=== PATIENT | female | born 1945 | race Caucasian/White ===

== ENCOUNTER 2017-01-09 14:54 | Inpatient (IN) | payer OTHER, MEDICARE ==
[~2017-01-09] VITALS: Ht 152.4 cm; Wt 98.0 kg
[2017-01-09 15:05] VITALS: BP 113/59; PULSE 120; RESP 22; TEMP 102.5; O2SAT 95
[2017-01-09] MEDS ORDERED: SODIUM CHLOR 0.9% 1000 ML INJ 1,000 ML IV ONE ×2 (15:15)
[2017-01-09] MEDS ORDERED: SODIUM CHLOR 0.9% 1000 ML INJ 400 ML IV ONE (15:15)
[2017-01-09] MEDS ORDERED: ACETAMINOPHEN 325 MG TAB PO ONE (15:15)
[2017-01-09 15:18] VITALS: BP 113/59; PULSE 120; RESP 25; TEMP 102.5; O2SAT 95
--- NOTE | 2017-01-09 15:28 | PD ---
HPI Chief Complaint: Cold / Flu Symptoms Time Seen by Provider: 15:15 Travel History International Travel<30 days: No Contact w/Intl Traveler<30days: No Traveled to known affect area: No History of Present Illness HPI Patient 71-year-old female visiting from [place] presents emergency department with cough congestion and fever for the past few days. 911 was called today because the patient has been falling because she has been generalized weakness. Is accompanied by family members. Patient states she's been feeling rundown cough and congestion went to urgent care center and she was diagnosed with vertigo recently. On arrival she is febrile and appears somewhat dehydrated but is a GCS of 15. She does endorse a wet cough which is nonproductive of sputum for the past few days and gradually worsening. States she's been in [place] since October. No other recent travel. PFSH Past Medical History Cardiovascular Problems: Yes (CABG) Respiratory: Yes (COPD, ASTHMA ) ?: Not Past Surgical History Hysterectomy: Yes Social History Tobacco Use: No Allergies-Medications (Allergen,Severity, Reaction): Coded Allergies: Codeine (Verified Allergy, Unknown, 01/09/17) Percocet (Verified Allergy, Unknown, 01/09/17) Reported Meds & Prescriptions Reported Meds & Active Scripts Active Reported Prednisone 5 Mg Tab 5 Mg PO HS Levothyroxine (Levothyroxine Sodium) 88 Mcg Tab 88 Mcg PO DAILY Pantoprazole (Pantoprazole Sodium) 40 Mg Tab 40 Mg PO DAILY Lasix (Furosemide) 40 Mg Tab 40 Mg PO BID Aspirin Adult Low Strength (Aspirin) 81 Mg Tabdr 81 Mg PO HS Buspirone (Buspirone HCl) 10 Mg Tab 10 Mg PO TID PRN Potassium Chloride ER (Potassium Chloride) 10 Meq Tab 10 Meq PO BID Pravastatin 40 Mg Tab 40 Mg PO HS Montelukast (Montelukast Sodium) 10 Mg Tab 10 Mg PO HS Amitriptyline (Amitriptyline HCl) 150 Mg Tab 150 Mg PO HS Meclizine (Meclizine HCl) 12.5 Mg Tab 12.5 Mg PO TID PRN Fish Oil 1000 mg ([place]-3 Fatty Acids) 1 Cap Cap 1,000 Mg PO BID Zofran (Ondansetron HCl) 4 Mg Tab 4 Mg PO Q8HR PRN Vistaril (Hydroxyzine Pamoate) 25 Mg Cap 25 Mg PO TID PRN Plavix (Clopidogrel Bisulfate) 75 Mg Tab 75 Mg PO DAILY Metoprolol Succinate ER 24 HR (Metoprolol Succinate) 100 Mg Tab 100 Mg PO DAILY Methocarbamol 750 Mg Tab 1,500 Mg PO BID Gabapentin 300 Mg Cap 900 Mg PO TID Review of Systems Except as stated in HPI: all other systems reviewed are Neg Physical Exam Narrative GENERAL: Well-developed well-nourished hot and flushed, ill-appearing but nontoxic. SKIN: Hot and flushed. HEAD: Atraumatic. Normocephalic. EYES: Pupils equal and round. No scleral icterus. No injection or drainage. ENT: No nasal bleeding or discharge. Mucous membranes pink and moist. NECK: Trachea midline. No JVD. CARDIOVASCULAR: Regular rate and rhythm. No murmur appreciated. RESPIRATORY: No accessory muscle use. Clear to auscultation. Breath sounds equal bilaterally. GASTROINTESTINAL: Abdomen soft, non-tender, nondistended. Hepatic and splenic margins not palpable. MUSCULOSKELETAL: No obvious deformities. No clubbing. No cyanosis. No edema. NEUROLOGICAL: Awake and alert. No obvious cranial nerve deficits. Motor grossly within normal limits. Normal speech. PSYCHIATRIC: Appropriate mood and affect; insight and judgment normal. Data Data Last Documented VS Vital Signs Date Time Temp Pulse Resp B/P Pulse Ox O2 Delivery O2 Flow Rate FiO2 01/09/17 16:51 100.3 01/09/17 16:49 96 Nasal Cannula 3 01/09/17 15:18 120 25 113/59 Orders Complete Blood Count With Diff (01/09/17 15:15) Comprehensive Metabolic Panel (01/09/17 15:15) Prothrombin Time / Inr (Pt) (01/09/17 15:15) Act Partial Throm Time (Ptt) (01/09/17 15:15) Lactic Acid Sepsis Protocol (01/09/17 15:15) Magnesium (Mg) (01/09/17 15:15) Phosphorus (Po4) (01/09/17 15:15) Lipase (01/09/17 15:15) Ckmb (Isoenzyme) Profile (01/09/17 15:15) Troponin I (01/09/17 15:15) Urinalysis - C+S If Indicated (01/09/17 15:15) Blood Culture (01/09/17 15:15) Chest, Single Ap (01/09/17 15:15) Blood Glucose (01/09/17 15:15) Ecg Monitoring (01/09/17 15:15) Iv Access Insert/Monitor (01/09/17 15:15) Oximetry (01/09/17 15:15) Oxygen Administration (01/09/17 15:15) Acetaminophen (Tylenol) (01/09/17 15:15) Sodium Chlor 0.9% 1000 Ml Inj (Ns 1000 M (01/09/17 15:15) Sodium Chlor 0.9% 1000 Ml Inj (Ns 1000 M (01/09/17 15:15) Sodium Chlor 0.9% 1000 Ml Inj (Ns 1000 M (01/09/17 15:15) Ceftriaxone Inj (Rocephin Inj) (01/09/17 18:15) Azithromycin Inj (Zithromax Inj) (01/09/17 18:15) Diet Heart Healthy (01/09/17 Dinner) Vital Signs (Adult) AUGUSTO.Q4H (01/09/17 18:25) Resp Oxygen Stevenson C Titrat 1-4 L (01/09/17 ) Acetaminophen (Tylenol) (01/09/17 18:30) Admit Order (Ed Use Only) (01/09/17 ) Albuterol-Ipratropium Neb (Duoneb Neb) (01/09/17 18:30) Labs Laboratory Tests Test 01/09/17 01/09/17 01/09/17 15:15 15:45 18:20 White Blood Count 13.9 TH/MM3 Red Blood Count 4.95 MIL/MM3 Hemoglobin 14.0 GM/DL Hematocrit 43.1 % Mean Corpuscular Volume 87.0 FL Mean Corpuscular Hemoglobin 28.2 PG Mean Corpuscular Hemoglobin 32.4 % Concent Red Cell Distribution Width 14.0 % Platelet Count 216 TH/MM3 Mean Platelet Volume 9.2 FL Neutrophils (%) (Auto) 86.0 % Lymphocytes (%) (Auto) 9.2 % Monocytes (%) (Auto) 4.2 % Eosinophils (%) (Auto) 0.3 % Basophils (%) (Auto) 0.3 % Neutrophils # (Auto) 11.9 TH/MM3 Lymphocytes # (Auto) 1.3 TH/MM3 Monocytes # (Auto) 0.6 TH/MM3 Eosinophils # (Auto) 0.0 TH/MM3 Basophils # (Auto) 0.0 TH/MM3 CBC Comment DIFF FINAL Differential Comment Prothrombin Time 10.8 SEC Prothromb Time International 1.0 RATIO Ratio Activated Partial 26.1 SEC Thromboplast Time Sodium Level 139 MEQ/L Potassium Level 3.6 MEQ/L Chloride Level 103 MEQ/L Carbon Dioxide Level 28.9 MEQ/L Anion Gap 7 MEQ/L Blood Urea Nitrogen 4 MG/DL Creatinine 0.64 MG/DL Estimat Glomerular Filtration 92 ML/MIN Rate Random Glucose 118 MG/DL Lactic Acid Level 2.2 mmol/L 1.4 mmol/L Calcium Level 8.6 MG/DL Phosphorus Level 2.6 MG/DL Magnesium Level 1.8 MG/DL Total Bilirubin 0.8 MG/DL Aspartate Amino Transf 33 U/L (AST/SGOT) Alanine Aminotransferase 27 U/L (ALT/SGPT) Alkaline Phosphatase 80 U/L Total Creatine Kinase 59 U/L Troponin I LESS THAN 0.02 NG/ML Total Protein 6.9 GM/DL Albumin 3.7 GM/DL Lipase 100 U/L Urine Color YELLOW Urine Turbidity CLEAR Urine pH 8.0 Urine Specific [place] 1.012 Urine Protein NEG mg/dL Urine Glucose (UA) NEG mg/dL Urine Ketones NEG mg/dL Urine Occult Blood NEG Urine Nitrite NEG Urine Bilirubin NEG Urine Urobilinogen LESS THAN 2.0 MG/DL Urine Leukocyte Esterase SMALL Urine WBC 1 /hpf Urine Squamous Epithelial 1 /hpf Cells Microscopic Urinalysis Comment CULT NOT INDICATED MDM Medical Decision Making Medical Screen Exam Complete: Yes Emergency Medical Condition: Yes Interpretation(s) Chest x-ray shows left lower lobe infiltrate. Differential Diagnosis Pneumonia, sepsis, dehydration, electro-light abnormality. Narrative Course Patient roomed in the emergency department, appears hemodynamically stable however somewhat ill but nontoxic appearance. Antibiotics were started Rocephin and azithromycin, normal saline given by bolus. Initial lactic acid is 2.2 becoming 1.4 after fluid resuscitation. Chest x-ray read by radiology is negative however I believe I see some infiltrative process in the left lower lobe probably retrocardiac. Given that the patient is been falling I have opted to forego a lateral chest x-ray at this time. Discussed with the patient that given her pneumonia and sepsis I would refer him patient admits and she is agreeable. Patient was discussed with Dr. Morrow who was also agreeable and the patient will be admitted to his service. Diagnosis Primary Impression: PNA (pneumonia) Additional Impression: Sepsis Admitting Information Admitting Physician Requests: Admit Condition: Stable Arjun Gaviria MD Jan 09, 2017 15:28
[2017-01-09 16:06] LABS: AUTOMATED NEUTROPHIL # 11.9 TH/MM3 (1.8-7.7); BASOPHIL % 0.3 % (0.0-2.0); EOSINOPHIL % 0.3 % (0.0-4.0); HEMATOCRIT 43.1 % (35.0-46.0); HEMO FLAGS DIFF FINAL; LYMPH % 9.2 % (9.0-44.0); LYMPHOCYTE # 1.3 TH/MM3 (1.0-4.8); MEAN CORPUSCULAR HEMOGLOBIN 28.2 PG (27.0-34.0); MEAN CORPUSCULAR HGB CONC 32.4 % (32.0-36.0); MONO % 4.2 % (0.0-8.0); PLATELET COUNT 216 TH/MM3 (150-450); RED BLOOD COUNT 4.95 MIL/MM3 (4.00-5.30); WHITE BLOOD COUNT 13.9 TH/MM3 (4.0-11.0)
[2017-01-09 16:10] LABS: APTT (PATIENT) 26.1 SEC (24.3-30.1); PROTHROMBIN TIME - PATIENT 10.8 SEC (9.8-11.6)
--- NOTE | 2017-01-09 16:11 | RADRPT ---
EXAM DATE/TIME: 01/09/2017 15:33 [facility] COMPARISON: No previous studies available for comparison. INDICATIONS : Fever. MEDICAL HISTORY : None. SURGICAL HISTORY : CABG. ENCOUNTER: Initial ACUITY: 1 day PAIN SCORE: 0/10 LOCATION: Bilateral chest FINDINGS: Sternal wires from previous mediastinum is noted. The lungs are clear. The heart is minimally enlarged. The pulmonary vascularity is normal. There is n o evidence for infiltrate or failure. The portion of the bony skeleton visualized is unremarkable. CONCLUSION: Compensated cardiomegaly otherwise negative Willis Breen MD FACR Board Certified Radiologist. This report was verified electronically.
[2017-01-09 16:19] LABS: ALT (GPT) 27 U/L (10-53); ANION GAP 7 MEQ/L (5-15); AST (GOT) 33 U/L (15-37); BICARBONATE 28.9 MEQ/L (21.0-32.0); BLOOD UREA NITROGEN 4 MG/DL (7-18); CHLORIDE 103 MEQ/L (98-107); GLOMERULAR FILTRATION RATE 92 ML/MIN (>89); MAGNESIUM 1.8 MG/DL (1.5-2.5); POTASSIUM 3.6 MEQ/L (3.5-5.1); SODIUM (NA) 139 MEQ/L (136-145)
[2017-01-09 16:22] LABS: ALKALINE PHOSPHATASE 80 U/L (45-117); TOTAL BILIRUBIN ADULT 0.8 MG/DL (0.2-1.0)
[2017-01-09 16:29] LABS: CREATINE KINASE 59 U/L (26-192)
[2017-01-09] MEDS ORDERED: PANT40TA3 PO (16:34)
[2017-01-09] MEDS ORDERED: LEVO88TA2 PO (16:34)
[2017-01-09] MEDS ORDERED: ASPI1TAB91 PO (16:34)
[2017-01-09] MEDS ORDERED: GABA300C5 PO (16:34)
[2017-01-09] MEDS ORDERED: VIST25CA PO (16:34)
[2017-01-09] MEDS ORDERED: PLAV75TA29 PO (16:34)
[2017-01-09] MEDS ORDERED: POTA10TA2 PO (16:34)
[2017-01-09] MEDS ORDERED: MONT10TA4 PO (16:34)
[2017-01-09] MEDS ORDERED: AMIT150T PO (16:34)
[2017-01-09] MEDS ORDERED: PRED5TAB PO (16:34)
[2017-01-09] MEDS ORDERED: PRAV40TA2 PO (16:34)
[2017-01-09] MEDS ORDERED: FURO1TAB60 PO (16:34)
[2017-01-09] MEDS ORDERED: METO100T9 PO (16:34)
[2017-01-09] MEDS ORDERED: METH750T PO (16:34)
[2017-01-09] MEDS ORDERED: MECL12.574 PO (16:34)
[2017-01-09] MEDS ORDERED: BUSP10TA PO (16:34)
[2017-01-09] MEDS ORDERED: ZOFR4TAB PO (16:34)
[2017-01-09] MEDS ORDERED: FISH100020 PO (16:34)
[2017-01-09 16:40] LABS: BLOOD, URINE NEG (NEG); COMMENT (UR) CULT NOT INDICATED; CULTURE IF INDICATED CULT NOT INDICATED; GLUCOSE,URINE NEG (NEG); KETONE, URINE NEG (NEG); NITRITE,URINE NEG (NEG); SQUAMOUS EPITHELIAL CELL URINE 1 /hpf (0-5); URINE COLOR YELLOW (YELLW/STRAW)
[2017-01-09 16:51] VITALS: TEMP 100.3
[2017-01-09 17:44] LABS: LACTIC ACID GHOST NOT REPORTABLE
[2017-01-09] MEDS ORDERED: AZITHROMYCIN INJ 500 MG in SODIUM CHLOR 0.9% 250 ML INJ 250 ML IV ONE (18:15)
[2017-01-09] MEDS ORDERED: cefTRIAXone INJ 1,000 MG in SODIUM CHLORIDE 0.9% INJ 100 ML IV ONE (18:15)
[2017-01-09] MEDS ORDERED: RESP: ALBUTEROL 2.5 MG/IPRATROPIUM 0.5 MG NEB (PRN) NEB (18:30)
[2017-01-09] MEDS ORDERED: IBUPROFEN 600 MG TAB PO ONE (19:00)
[2017-01-09 19:06] VITALS: BP 127/63; PULSE 106; RESP 18; O2SAT 99
[2017-01-09 19:12] VITALS: O2SAT 97
[2017-01-10] VITALS (8 sets, daily range): BP systolic 117–146; BP diastolic 61–79; PULSE 77–97; RESP 18–22; TEMP 97.3–99.7; O2SAT 93–98
--- NOTE | 2017-01-10 01:31 | HHI.HP ---
HPI Service [facility] Primary Care Physician Unknown Admission Diagnosis Sepsis, PNA Diagnoses: Travel History International Travel<30 Days: No Contact w/Intl Traveler <30 Da: No Traveled to Known Affected Are: No History of Present Illness fallen down 6x in 2 months here from [place] felt dzzy, room spinning force pulling me fell forwards falls > 3 months or could be even last year ct brain in [place]- [facility] no pain or ringing in ears no sycnope no palpitations no focal weakness no orthostatic dizziness in general no fever coughing when i drink something and go to wrong pipe no antibiotics recently urgent care gave antivert and prednisone 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 radiation treatment because of change in tumor no odynophasi but cough after drinking had huge knot behind her ear - evaluated at urgent now has right upper ear area hard knot sob with climbing stairs or espinoza no nasuea/ no vomting/ no sweating/ no chest pains nno black no blood no abdominal pain no calf pain no calf asymmetry Review of Systems Except as stated in HPI: all other systems reviewed are Neg Past Family Social History Past Medical History cabg- 1995 cad - s/p stent once since then hyperlipidemia htn copd asthma 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, 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 a year later due to regrowth Past Surgical History cabg- 1995 angiogram and stenting left elbow sx gallbladder hysterectomy tumor on jaw- benign, removal hernia sx x 3 gastric bypass-1980 armando bilateral knee replacement 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 no drugs Physical Exam Vital Signs Vital Signs Date Time Temp Pulse Resp B/P Pulse Ox O2 Delivery O2 Flow Rate FiO2 01/09/17 19:12 97 Nasal Cannula 2.00 01/09/17 19:06 106 18 127/63 99 Nasal Cannula 2 01/09/17 16:51 100.3 01/09/17 16:49 96 Nasal Cannula 3 01/09/17 15:18 102.5 120 25 113/59 95 Nasal Cannula 3 01/09/17 15:12 25 95 Nasal Cannula 3 01/09/17 15:05 102.5 120 22 113/59 95 Physical Exam GENERAL: This is a well-nourished, well-developed patient, in no apparent distress. SKIN: No rashes, ecchymoses or lesions. Cool and dry. HEAD: Atraumatic. Normocephalic. No temporal or scalp tenderness. small hard mass at right scalp just above pinna EYES: No scleral icterus. No injection or drainage. ENT: Nose without bleeding, purulent drainage or septal hematoma. Airway patent. NECK: Trachea midline. No JVD CARDIOVASCULAR: Regular rate and rhythm without murmurs, gallops, or rubs. RESPIRATORY: Clear to auscultation. Breath sounds equal bilaterally. No wheezes , rales, or rhonchi. GASTROINTESTINAL: Abdomen soft, non-tender, nondistended.. No guarding. MUSCULOSKELETAL: Extremities without clubbing, cyanosis, or edema. No calf tenderness. NEUROLOGICAL: Awake and alert. Motor and sensory grossly within normal limits. Normal speech. Laboratory Laboratory Tests Test 01/09/17 01/09/17 01/09/17 15:15 15:45 18:20 White Blood Count 13.9 Red Blood Count 4.95 Hemoglobin 14.0 Hematocrit 43.1 Mean Corpuscular Volume 87.0 Mean Corpuscular Hemoglobin 28.2 Mean Corpuscular Hemoglobin 32.4 Concent Red Cell Distribution Width 14.0 Platelet Count 216 Mean Platelet Volume 9.2 Neutrophils (%) (Auto) 86.0 Lymphocytes (%) (Auto) 9.2 Monocytes (%) (Auto) 4.2 Eosinophils (%) (Auto) 0.3 Basophils (%) (Auto) 0.3 Neutrophils # (Auto) 11.9 Lymphocytes # (Auto) 1.3 Monocytes # (Auto) 0.6 Eosinophils # (Auto) 0.0 Basophils # (Auto) 0.0 CBC Comment DIFF FINAL Differential Comment Prothrombin Time 10.8 Prothromb Time International 1.0 Ratio Activated Partial 26.1 Thromboplast Time Sodium Level 139 Potassium Level 3.6 Chloride Level 103 Carbon Dioxide Level 28.9 Anion Gap 7 Blood Urea Nitrogen 4 Creatinine 0.64 Estimat Glomerular Filtration 92 Rate Random Glucose 118 Lactic Acid Level 2.2 1.4 Calcium Level 8.6 Phosphorus Level 2.6 Magnesium Level 1.8 Total Bilirubin 0.8 Aspartate Amino Transf 33 (AST/SGOT) Alanine Aminotransferase 27 (ALT/SGPT) Alkaline Phosphatase 80 Total Creatine Kinase 59 Troponin I LESS THAN 0.02 Total Protein 6.9 Albumin 3.7 Lipase 100 Urine Color YELLOW Urine Turbidity CLEAR Urine pH 8.0 Urine Specific [place] 1.012 Urine Protein NEG Urine Glucose (UA) NEG Urine Ketones NEG Urine Occult Blood NEG Urine Nitrite NEG Urine Bilirubin NEG Urine Urobilinogen LESS THAN 2.0 Urine Leukocyte Esterase SMALL Urine WBC 1 Urine Squamous Epithelial 1 Cells Microscopic Urinalysis Comment CULT NOT INDICATED Date/Time Procedure Status Source Growth 01/09/17 22:15 Influenza Types A,B Antigen (JHONY) - Final Complete Nasal Washing NEGATIVE FOR FLU A AND B ANTIGEN.... 01/09/17 15:20 Aerobic Blood Culture Received Blood Peripheral Pending 01/09/17 15:20 Anaerobic Blood Culture Received Blood Peripheral Pending Result Diagram: 01/09/17 1515 01/09/17 1515 Imaging Last [address] 01/10/17 0000 Signed Impressions: Service Date/Time: December 03:26 - CONCLUSION: Unremarkable study. K. Tanvir Bauer MD Chest X-Ray 01/09/17 1515 Signed Impressions: Service Date/Time: Monday, January 09, 2017 15:33 - CONCLUSION: Compensated cardiomegaly otherwise negative Willis Breen MD FACR Assessment and Plan Assessment and Plan Impression: dizziness/ frequent falls- likely due to vertigo. We'll need to rule out neurocardiogenic etiologies though. Possible sepsiswith fever, mild leukocytosis with left shift. Possible source being early pneumonia. Frequent fallswith shuffling gait per family report. Would need their outpatient workup if acute issues were ruled out since patient has strong family history of Parkinson's disease. 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 Echocardiogram. Carotid sono. Head CT. If head CT is benign, and patient symptoms are not improved, would consider MRI since patient has history of pituitary tumor which was resected and recurred. Influenza screen was done. Negative. We'll follow blood culture results. UA is negative. Patient received Rocephin and azithromycin in ER. Would use levofloxacin 750 mg IV every 24 hours. Resume home medications. Physical therapy consult. DVT prophylaxiswith Lovenox. GI prophylaxis on pantoprazole. Discussed Condition With patient, nursing staff Physician Certification Order for Inpatient Services The services are ordered in accordance with Medicare regulations or non- Medicare payer requirements, as applicable. In the case of services not specified as inpatient-only, they are appropriately provided as inpatient services in accordance with the 2-midnight benchmark. days is the estimated time the patient will need to remain in the hospital, assuming treatment plan goals are met and no additional complications. Sherlyn Ferreira MD Jan 10, 2017 01:31
[2017-01-10] MEDS ORDERED: MECLIZINE HCL 25 MG TAB PO PRN (02:30)
[2017-01-10] MEDS: hydrOXYzine PAMOATE 25 MG CAP PO PRN ×2 (02:41→16:52)
[2017-01-10] MEDS: ACETAMINOPHEN 325 MG TAB PO PRN ×5 (02:43→22:53)
[2017-01-10] MEDS ORDERED: ONDANSETRON ODT 4 MG TAB PO PRN (02:45)
[2017-01-10] MEDS ORDERED: PILL SPLITTER OTHER PRN (02:45)
--- NOTE | 2017-01-10 03:58 | RADRPT ---
EXAM DATE/TIME: 01/10/2017 03:26 [facility] COMPARISON: No previous studies available for comparison. INDICATIONS : Frequent falls. RADIATION DOSE: 39.17 CTDIvol (mGy) MEDICAL HISTORY : Cardiovascular disease. Hypertension. Chronic obstructive pulmonary disease.Pit uitary tumor SURGICAL HISTORY : Craniotomy. Cholecystectomy.Hysterectomy.Gastric bypass ENCOUNTER: Initial ACUITY: 1 day PAIN SCALE: 0/10 LOCATION: cranial TECHNIQUE: Multiple contiguous axial images were obtained of the head. Using automated exposure control and adjustment of the mA and/or kV according to patient size, radiation dose was kept as low as reasonably achievable to obtain optimal diagnostic quality images. FINDINGS: There is no evidence for intracranial hemorrhage, mass effect, mass lesions, edema, or extra-axial fl uid collections. The visualized bony structures appear intact. The ventricles are normal size for t he patient's age. There are no signs of acute infarction for technique. CONCLUSION: Unremarkable study. Deya Bauer MD on January 10, 2017 at 3:55 Board Certified Radiologist. This report was verified electronically.
[2017-01-10] MEDS: PANTOPRAZOLE SOD 40 MG DELAYED RELEASE TAB PO SCH (06:26)
[2017-01-10] MEDS: LEVOTHYROXINE SODIUM 88 MCG TAB PO SCH (06:26)
[2017-01-10] MEDS: LEVOFLOXACIN 750 MG PREMIX INJ 150 ML IV SCH (08:26)
[2017-01-10] MEDS: FUROSEMIDE 40 MG TAB PO SCH ×2 (08:29→16:52)
[2017-01-10] MEDS: POTASSIUM CHLORIDE 10 MEQ CONTROLLED RELEASE TAB PO SCH ×2 (08:29→20:03)
[2017-01-10] MEDS: CLOPIDOGREL 75 MG TAB PO SCH (08:29)
[2017-01-10] MEDS: ENOXAPARIN SODIUM 40 MG/0.4 ML SYRINGE SQ SCH (08:29)
[2017-01-10] MEDS: METOPROLOL SUCCINATE 50 MG EXTENDED RELEASE TAB PO SCH (08:29)
[2017-01-10] MEDS: GABAPENTIN 300 MG CAP PO SCH ×3 (08:29→16:52)
--- NOTE | 2017-01-10 09:07 | HHI.PR ---
Subjective Remarks resting comfortably. denies sob. afebrile this morning- Tmax 102.5. awaiting PT evaluation. d/w the RN. Objective Vitals Vital Signs Date Time Temp Pulse Resp B/P Pulse Ox O2 Delivery O2 Flow Rate FiO2 01/10/17 08:21 98.0 97 22 146/79 96 01/10/17 04:00 98.8 90 20 128/61 98 01/10/17 00:00 99.7 96 20 146/72 97 118/71 01/09/17 19:12 97 Nasal Cannula 2.00 01/09/17 19:06 106 18 127/63 99 Nasal Cannula 2 01/09/17 16:51 100.3 01/09/17 16:49 96 Nasal Cannula 3 01/09/17 15:18 102.5 120 25 113/59 95 Nasal Cannula 3 01/09/17 15:12 25 95 Nasal Cannula 3 01/09/17 15:05 102.5 120 22 113/59 95 Result Diagram: 01/09/17 1515 01/09/17 1515 Imaging Last Impressions Head CT 01/10/17 0000 Signed Impressions: Service Date/Time: December 03:26 - CONCLUSION: Unremarkable study. K. Tanvir Bauer MD Chest X-Ray 01/09/17 1515 Signed Impressions: Service Date/Time: Monday, January 09, 2017 15:33 - CONCLUSION: Compensated cardiomegaly otherwise negative Willis Breen MD FACR Objective Remarks GENERAL: This is a well-nourished, well-developed patient, in no apparent distress. CARDIOVASCULAR: Regular rate and regular rhythm without murmurs, gallops, or rubs. RESPIRATORY: Clear to auscultation. Breath sounds equal bilaterally. No wheezes , rales, or rhonchi. GASTROINTESTINAL: Abdomen soft, non-tender, nondistended. Normal, active bowel sounds MUSCULOSKELETAL: Extremities without clubbing, cyanosis, or edema. NEURO: Alert & Oriented x4 to person, place, time, situation. Moves all ext x4 Procedures none Medications and IVs Current Medications Acetaminophen 650 mg 650 mg ONCE ONCE PO Last administered on 01/09/17t 16:15 ; Start 01/09/17 at 15:15; Stop 01/09/17 at 15:20; Status DC Sodium Chloride 1,000 ml @ 1,000 mls/hr Q1H ONCE IV Last administered on 16:16; Start 01/09/17 at 15:15; Stop 01/09/17 at 16:14; Status DC Sodium Chloride 1,000 ml @ 1,000 mls/hr Q1H ONCE IV Last administered on 16:17; Start 01/09/17 at 15:15; Stop 01/09/17 at 16:14; Status DC Sodium Chloride 400 ml @ 1,000 mls/hr Q24M ONCE IV Last administered on 16:41; Start 01/09/17 at 15:15; Stop 01/09/17 at 15:38; Status DC Ceftriaxone Sodium 1000 mg/ Sodium Chloride 100 ml @ 200 mls/hr ONCE ONCE IV Last administered on 01/09/17 18:15; Start 01/09/17 at 18:15; Stop 01/09/17 at 18:44; Status DC Azithromycin/ Sodium Chloride (Zithromax Inj/ NS 250 ml Inj) 250 ml @ 250 mls/ hr ONCE ONCE IV Last administered on 01/09/17 18:39; Start 01/09/17 at 18:15 ; Stop 01/09/17 at 19:14; Status DC Acetaminophen (Tylenol) 650 mg Q4H PRN PO FEVER; Start 01/09/17 at 18:30 Albuterol/ Ipratropium (Duoneb Neb) 1 ampule Q4HR NEB PRN NEB SHORTNESS OF BREATH Last administered on 01/09/17 19:12; Start 01/09/17 at 18:30 Ibuprofen 600 mg 600 mg ONCE ONCE PO Last administered on 01/09/17 19:01; Start 01/09/17 at 19:00; Stop 01/09/17 at 19:01; Status DC Levofloxacin/ Dextrose (Levaquin 750 Mg Premix Inj) 150 ml @ 100 mls/hr Q24H IV Last administered on 01/10/17 08:26; Start 01/10/17 at 09:00 Amitriptyline HCl (Elavil) 150 mg HS PO ; Start 01/10/17 at 21:00 Aspirin (Ecotrin Ec) 81 mg HS PO ; Start 01/10/17 at 21:00 Clopidogrel Bisulfate (Plavix) 75 mg DAILY PO Last administered on 01/10/17 08 :29; Start 01/10/17 at 09:00 Furosemide (Lasix) 40 mg BID@09,18 PO Last administered on 01/10/17 08:29; Start 01/10/17 at 09:00 Gabapentin (Neurontin) 900 mg TID PO Last administered on 01/10/17 08:29; Start 01/10/17 at 09:00 Hydroxyzine Pamoate (Vistaril) 25 mg TID PRN PO ANXIETY Last administered on 02:41; Start 01/10/17 at 02:30 Levothyroxine Sodium (Synthroid) 88 mcg DAILY@06 PO Last administered on 06:26; Start 01/10/17 at 06:00 Meclizine HCl (Antivert) 12.5 mg TID PRN PO VERTIGO; Start 01/10/17 at 02:30 Montelukast Sodium (Singulair) 10 mg HS PO ; Start 01/10/17 at 21:00 Pantoprazole Sodium (Protonix) 40 mg DAILY@06 PO Last administered on 06:26; Start 01/10/17 at 06:00 Potassium Chloride (KCl) 10 meq BID PO Last administered on 01/10/17 08:29; Start 01/10/17 at 09:00 Pravastatin Sodium (Pravachol) 40 mg HS PO ; Start 01/10/17 at 21:00 Prednisone (Deltasone) 5 mg HS PO ; Start 01/10/17 at 21:00 Metoprolol Succinate (Toprol Xl) 100 mg DAILY PO Last administered on 08:29; Start 01/10/17 at 09:00 Ondansetron HCl (Zofran Odt) 4 mg Q8H PRN PO NAUSEA/VOMITING; Start 01/10/17 at 02:45 Miscellaneous (Pill Splitter) 1 ea UNSCH PRN OTHER SEE LABEL COMMENTS; Start at 02:45 Acetaminophen (Tylenol) 650 mg Q4H PRN PO pain 1-10 Last administered on 08:28; Start 01/10/17 at 02:45 Enoxaparin Sodium (Lovenox Inj) 40 mg Q24H SQ Last administered on 01/10/17t 08 :29; Start 01/10/17 at 09:00 A/P Assessment and Plan A/P dizziness/ frequent falls- likely due to vertigo. CT head with no acute abnormality- echo and carotid doppler pending. awaiting PT evaluation- will consider MRI brain and/or neurology evaluation if no improvement. Possible sepsiswith fever, mild leukocytosis with left shift. Possible source being early pneumonia. continue with antibiotics and follow the cultures. CAD- s/p CABG/ hypertension/ dyslipidemia; continue aspirin, plavix, BB and statin. 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 Ignacio Morrow MD Jan 10, 2017 09:07
--- NOTE | 2017-01-10 13:06 | RADRPT ---
EXAM DATE/TIME: 01/10/2017 09:42 [facility] COMPARISON: No previous studies available for comparison. INDICATIONS : Syncope. MEDICAL HISTORY : Hypertension. Chronic obstructive pulmonary disease. Thyroid disease. Dizziness. Asthma. Dyspnea. A rthritis. Spinal stenosis. Claustrophobia. Spurs on spinal column. SURGICAL HISTORY : CABG. Cholecystectomy. Hysterectomy. Tumor removed off jaw. Tumor removed off pituitary gland. 4 bypa ss surgerys. Gastric stapling. Two knee replacements. Two elbow replacements. ENCOUNTER: Initial ACUITY: 1 day PAIN SCORE: 0/10 LOCATION: Bilateral neck. PEAK SYSTOLIC VELOCITIES (cm/sec): ICA/CCA RATIO: Right: 1.2 Left: 1.2 ICA: Right: 92 Left: 108 CCA: Right: 83 Left: 141 ECA: Right: 89 Left: 84 VERTEBRAL: Right: 65 antegrade Left: 63 antegrade Elevated flow velocities and ICA/CCA ratios have been found to correlate with increased degrees of vessel stenosis, calculated as percentage of diameter relative to a normal segment of distal ICA/CCA FINDINGS: RIGHT CAROTID: There is mild atherosclerotic plaquing.. The waveforms are within normal limits. LEFT CAROTID: There is moderate atherosclerotic plaquing. The waveforms are within normal limits. VERTEBRAL ARTERIES: Antegrade flow is seen in both vertebral arteries. MISCELLANEOUS: None. CONCLUSION: 1. Atherosclerotic plaquing at the bifurcations bilaterally. No hemodynamically significant carotid a rtery stenosis identified. Osvaldo Breen MD on January 10, 2017 at 13:04 Board Certified Radiologist. This report was verified electronically.
--- NOTE | 2017-01-10 17:10 | ECHRPT ---
Indication: evaluate LV CONCLUSIONS Normal left ventricular size. Wall thickness is measured at the upper limits of normal. Mild aortic valve sclerosis is present. There is moderate to severe tricuspid valve regurgitation. The estimated pulmonary arterial pressure is 41 mmHg. The pulmonary valve is not well visualized. The transthoracic study is normal by two-dimensional, color flow imaging and Doppler interrogation. BP: / HR: 90 Rhythm: Sinus MEASUREMENTS (Male / Female) Normal Values Technical Quality:Good 2D ECHO LV Diastolic Diameter PLAX 4.5 cm 4.2 - 5.9 / 3.9 - 5.3 cm LV Systolic Diameter PLAX 3.6 cm IVS Diastolic Thickness 1.2 cm 0.6 - 1.0 / 0.6 - 0.9 cm LVPW Diastolic Thickness 1.2 cm 0.6 - 1.0 / 0.6 - 0.9 cm LV Relative Wall Thickness 0.5 LVOT Diameter 1.8 cm M-MODE Aortic Root Diameter MM 2.5 cm LA Systolic Diameter MM 4.1 cm LA Ao Ratio MM 1.6 AV Cusp Separation MM 1.8 cm DOPPLER AV Peak Velocity 121.0 cm/s AV Peak Gradient 5.9 mmHg LVOT Peak Velocity 117.0 cm/s LVOT Peak Gradient 5.5 mmHg AV Area Cont Eq pk 2.5 cm TR Peak Velocity 278.0 cm/s TR Peak Gradient 30.9 mmHg PV Peak Velocity 133.0 cm/s PV Peak Gradient 7.1 mmHg FINDINGS LEFT VENTRICLE The left ventricular systolic function is normal with an estimated ejection fraction in the range of 60-65%. Normal left ventricular size. Wall thickness is measured at the upper limits of normal. RIGHT VENTRICLE Normal right ventricular size and systolic function. LEFT ATRIUM The left atrial size is normal. RIGHT ATRIUM The right atrial size is normal. ATRIAL SEPTUM Normal atrial septal thickness without atrial level shunting by limited color doppler interrogation. AORTA The aortic root and proximal ascending aorta are normal in size on limited imaging. MITRAL VALVE Structurally normal mitral valve. No mitral valve stenosis or regurgitation. AORTIC VALVE Trileaflet aortic valve. No aortic valve stenosis or regurgitation. Mild aortic valve sclerosis is present. TRICUSPID VALVE Structurally normal tricuspid valve. There is moderate to severe tricuspid valve regurgitation. The estimated pulmonary arterial pressure is 41 mmHg. PULMONARY VALVE The pulmonary valve is not well visualized. VESSELS The inferior vena cava is normal in size. PERICARDIUM No pericardial effusion. Palomo El MD (Electronically Signed) Final Date:10 January 2017 17:09
[2017-01-10] MEDS: predniSONE 5 MG TAB PO SCH (20:03)
[2017-01-10] MEDS: ASPIRIN EC 81 MG TABEC PO SCH (20:03)
[2017-01-10] MEDS: MONTELUKAST SODIUM 10 MG TAB PO SCH (20:03)
[2017-01-10] MEDS: PRAVASTATIN SOD 40 MG TAB PO SCH (20:03)
[2017-01-10] MEDS: AMITRIPTYLINE HCL 75 MG TAB PO SCH (20:07)
[2017-01-11] VITALS (7 sets, daily range): BP systolic 121–150; BP diastolic 20–81; PULSE 69–94; RESP 20; TEMP 97.4–98.8; O2SAT 90–97
[2017-01-11] MEDS: hydrOXYzine PAMOATE 25 MG CAP PO PRN ×3 (01:49→22:11)
[2017-01-11] MEDS: LEVOTHYROXINE SODIUM 88 MCG TAB PO SCH (06:25)
[2017-01-11] MEDS: PANTOPRAZOLE SOD 40 MG DELAYED RELEASE TAB PO SCH (06:25)
--- NOTE | 2017-01-11 08:53 | HHI.PR ---
Subjective Remarks in no acute distress. afebrile. still with some vertigo and unsteady gait; she says that she was trying to go to bathroom last night but was not steady on her feet. Objective Vitals Vital Signs Date Time Temp Pulse Resp B/P Pulse Ox O2 Delivery O2 Flow Rate FiO2 01/11/17 08:13 97.4 70 20 141/74 93 01/11/17 04:00 98.0 80 20 121/69 90 01/11/17 01:00 97.5 94 20 124/73 97 01/10/17 20:00 98.5 18 117/69 93 01/10/17 18:00 94 21 01/10/17 16:18 97.5 79 20 120/70 94 01/10/17 12:23 97.3 77 20 122/78 98 01/10/17 10:40 98 21 I/O 01/10/17 01/10/17 01/10/17 01/11/17 01/11/17 01/11/17 07:00 15:00 23:00 07:00 15:00 23:00 Intake Total 270 ml Balance 270 ml Intake Oral 120 ml IV Total 150 ml # Voids 2 3 2 # Bowel Movements 1 1 Result Diagram: 01/09/17 1515 01/09/17 1515 Imaging Last Impressions Head CT 01/10/17 0000 Signed Impressions: Service Date/Time: December 03:26 - CONCLUSION: Unremarkable study. K. Tanvir Bauer MD Carotid Artery Ultrasound 01/10/17 0000 Signed Impressions: Service Date/Time: December 09:42 - CONCLUSION: 1. Atherosclerotic plaquing at the bifurcations bilaterally. No hemodynamically significant carotid artery stenosis identified. Osvaldo Breen MD Chest X-Ray 01/09/17 1515 Signed Impressions: Service Date/Time: Monday, January 09, 2017 15:33 - CONCLUSION: Compensated cardiomegaly otherwise negative Willis Breen MD FACR Objective Remarks GENERAL: This is a well-nourished, well-developed patient, in no apparent distress. CARDIOVASCULAR: Regular rate and regular rhythm without murmurs, gallops, or rubs. RESPIRATORY: Clear to auscultation. Breath sounds equal bilaterally. No wheezes , rales, or rhonchi. GASTROINTESTINAL: Abdomen soft, non-tender, nondistended. Normal, active bowel sounds MUSCULOSKELETAL: Extremities without clubbing, cyanosis, or edema. NEURO: Alert & Oriented x4 to person, place, time, situation. Moves all ext x4 Procedures none Medications and IVs Current Medications Acetaminophen 650 mg 650 mg ONCE ONCE PO Last administered on 01/09/17 16:15 ; Start 01/09/17 at 15:15; Stop 01/09/17 at 15:20; Status DC Sodium Chloride 1,000 ml @ 1,000 mls/hr Q1H ONCE IV Last administered on 16:16; Start 01/09/17 at 15:15; Stop 01/09/17 at 16:14; Status DC Sodium Chloride 1,000 ml @ 1,000 mls/hr Q1H ONCE IV Last administered on 16:17; Start 01/09/17 at 15:15; Stop 01/09/17 at 16:14; Status DC Sodium Chloride 400 ml @ 1,000 mls/hr Q24M ONCE IV Last administered on 16:41; Start 01/09/17 at 15:15; Stop 01/09/17 at 15:38; Status DC Ceftriaxone Sodium 1000 mg/ Sodium Chloride 100 ml @ 200 mls/hr ONCE ONCE IV Last administered on 01/09/17 18:15; Start 01/09/17 at 18:15; Stop 01/09/17 at 18:44; Status DC Azithromycin/ Sodium Chloride (Zithromax Inj/ NS 250 ml Inj) 250 ml @ 250 mls/ hr ONCE ONCE IV Last administered on 01/09/17 18:39; Start 01/09/17 at 18:15 ; Stop 01/09/17 at 19:14; Status DC Acetaminophen (Tylenol) 650 mg Q4H PRN PO FEVER; Start 01/09/17 at 18:30 Albuterol/ Ipratropium (Duoneb Neb) 1 ampule Q4HR NEB PRN NEB SHORTNESS OF BREATH Last administered on 01/09/17 19:12; Start 01/09/17 at 18:30 Ibuprofen 600 mg 600 mg ONCE ONCE PO Last administered on 01/09/17 19:01; Start 01/09/17 at 19:00; Stop 01/09/17 at 19:01; Status DC Levofloxacin/ Dextrose (Levaquin 750 Mg Premix Inj) 150 ml @ 100 mls/hr Q24H IV Last administered on 01/10/17 08:26; Start 01/10/17 at 09:00 Amitriptyline HCl (Elavil) 150 mg HS PO Last administered on 01/10/17 20:07; Start 01/10/17 at 21:00 Aspirin (Ecotrin Ec) 81 mg HS PO Last administered on 01/10/17 20:03; Start at 21:00 Clopidogrel Bisulfate (Plavix) 75 mg DAILY PO Last administered on 01/10/17 08 :29; Start 01/10/17 at 09:00 Furosemide (Lasix) 40 mg BID@09,18 PO Last administered on 01/10/17 16:52; Start 01/10/17 at 09:00 Gabapentin (Neurontin) 900 mg TID PO Last administered on 01/10/17 16:52; Start 01/10/17 at 09:00 Hydroxyzine Pamoate (Vistaril) 25 mg TID PRN PO ANXIETY Last administered on 07:53; Start 01/10/17 at 02:30 Levothyroxine Sodium (Synthroid) 88 mcg DAILY@06 PO Last administered on 06:25; Start 01/10/17 at 06:00 Meclizine HCl (Antivert) 12.5 mg TID PRN PO VERTIGO; Start 01/10/17 at 02:30 Montelukast Sodium (Singulair) 10 mg HS PO Last administered on 01/10/17 20:03 ; Start 01/10/17 at 21:00 Pantoprazole Sodium (Protonix) 40 mg DAILY@06 PO Last administered on 06:25; Start 01/10/17 at 06:00 Potassium Chloride (KCl) 10 meq BID PO Last administered on 01/10/17 20:03; Start 01/10/17 at 09:00 Pravastatin Sodium (Pravachol) 40 mg HS PO Last administered on 01/10/17 20:03 ; Start 01/10/17 at 21:00 Prednisone (Deltasone) 5 mg HS PO Last administered on 01/10/17 20:03; Start 01/10/17 at 21:00 Metoprolol Succinate (Toprol Xl) 100 mg DAILY PO Last administered on 08:29; Start 01/10/17 at 09:00 Ondansetron HCl (Zofran Odt) 4 mg Q8H PRN PO NAUSEA/VOMITING; Start 01/10/17 at 02:45 Miscellaneous (Pill Splitter) 1 ea UNSCH PRN OTHER SEE LABEL COMMENTS; Start at 02:45 Acetaminophen (Tylenol) 650 mg Q4H PRN PO pain 1-10 Last administered on 22:53; Start 01/10/17 at 02:45 Enoxaparin Sodium (Lovenox Inj) 40 mg Q24H SQ Last administered on 01/10/17 08 :29; Start 01/10/17 at 09:00 A/P Assessment and Plan A/P dizziness/ frequent falls- likely due to vertigo. CT head with no acute abnormality- carotid doppler with no significant stenosis- will consult neurology- continue PT. Possible sepsiswith fever, mild leukocytosis with left shift. Possible source being early pneumonia. continue with antibiotics and follow the cultures. CAD- s/p CABG/ hypertension/ dyslipidemia; continue aspirin, plavix, BB and statin. 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 Ignacio Morrow MD Jan 11, 2017 08:53
[2017-01-11] MEDS: METOPROLOL SUCCINATE 50 MG EXTENDED RELEASE TAB PO SCH (09:48)
[2017-01-11] MEDS: CLOPIDOGREL 75 MG TAB PO SCH (09:48)
[2017-01-11] MEDS: GABAPENTIN 300 MG CAP PO SCH ×3 (09:48→17:25)
[2017-01-11] MEDS: POTASSIUM CHLORIDE 10 MEQ CONTROLLED RELEASE TAB PO SCH ×2 (09:48→22:03)
[2017-01-11] MEDS: FUROSEMIDE 40 MG TAB PO SCH ×2 (09:48→17:26)
[2017-01-11] MEDS: ENOXAPARIN SODIUM 40 MG/0.4 ML SYRINGE SQ SCH (09:49)
[2017-01-11] MEDS: LEVOFLOXACIN 750 MG PREMIX INJ 150 ML IV SCH (09:49)
[2017-01-11 11:21] LABS: AUTOMATED NEUTROPHIL # 3.8 TH/MM3 (1.8-7.7); BASOPHIL # 0.1 TH/MM3 (0-0.2); EOSINOPHIL # 0.2 TH/MM3 (0-0.4); HEMO FLAGS DIFF FINAL; LYMPH % 33.6 % (9.0-44.0); LYMPHOCYTE # 2.4 TH/MM3 (1.0-4.8); MEAN CELL VOLUME 86.3 FL (80.0-100.0); MEAN CORPUSCULAR HEMOGLOBIN 28.8 PG (27.0-34.0); MEAN CORPUSCULAR HGB CONC 33.4 % (32.0-36.0); MONO % 8.7 % (0.0-8.0); NEUT % 53.7 % (16.0-70.0); PLATELET COUNT 206 TH/MM3 (150-450); RED CELL DISTRIBUTION WIDTH 13.9 % (11.6-17.2); WHITE BLOOD COUNT 7.1 TH/MM3 (4.0-11.0)
[2017-01-11] MEDS: ACETAMINOPHEN 325 MG TAB PO PRN (13:31)
[2017-01-11] MEDS ORDERED: LORazepam 0.5 MG TAB PO PRN (18:00)
--- NOTE | 2017-01-11 20:07 | MB ---
cc: WADE DYER M.D. DATE OF CONSULTATION: 01/11/2017. REASON FOR CONSULTATION: Possible vertigo. HISTORY OF PRESENT ILLNESS: The patient is 71-year-old woman who is visiting family here from [place] for the last few months but has had a few falls over the last couple months. She states that she just falls to the ground and unable to get herself up unless she is able to get to something and pull herself up. She feels like something is pulling her down. At times, she has had vertigo and currently she is sitting in bed and offers no complaints of dizziness or weakness. Denies any vertigo. PAST MEDICAL HISTORY: 1. Pituitary tumor removed in 2005 with radiation due to change in tumor size. 2. History of bypass in 1995. 3. Stenting. 4. Hyperlipidemia. 5. Hypertension. 6. COPD. 7. Asthma. 8. Hypothyroidism. 9. Both knees replacement surgery. 10. Left elbow surgery. 11. Gallbladder. ALLERGIES: 1. CODEINE. 2. PERCOCET. FAMILY HISTORY: Brother with depression and another brother with Lewy Body, mother with cancer, father with brain tumor. SOCIAL HISTORY: No drugs, alcohol or tobacco. PHYSICAL EXAMINATION: VITAL SIGNS: Temperature 98.6, pulse 74, respiratory rate 20, blood pressure 133/81, satting at 94% on room air. NECK: The neck is supple. There are no carotid bruits. HEART: Regular. NEUROLOGICAL EXAMINATION: She is awake, alert. She is oriented and fluent. Her pupils are reactive. Visual krishnamurthy are full. Face symmetrical. Tongue midline. Motor-hunt, no significant drift or leg lag. Both toes are downgoing. Cerebellar testing is normal. Gait - she has just ambulated with the nurse to the bathroom without any difficulty. LABS: Urinalysis has small leukocyte esterase. Culture was not indicated and was not done. Chemistries: Lactic acid 2.2 and then 1.4, glucose 118. Coag panel normal. CBC: White count 13.9 two days ago and now 7.1. Influenza A and B were negative. Blood cultures in two days nothing acute. IMAGING STUDIES: She had a carotid ultrasound that showed plaquing, atherosclerotic disease bilateral bifurcations but no hemodynamic significant stenosis. CT of the brain was unremarkable. Chest x-ray also compensated cardiomegaly, otherwise negative. IMPRESSION: This is a 71-year-old woman with possible vertigo status post fall. This may be due to orthostasis. Could have been due to her leukocytosis or multiple factors. RECOMMENDATIONS: 1. I would recommend having her undergo an MRI of the brain and MRA [place] of [place] just to make sure there is no intracranial disease and no stroke. 2. Continue her current aspirin and Plavix. 3. Physical therapy evaluation. 4. Further recommendations to be made if needed. 5. Of note, I would also check orthostatics and an outpatient Holter. MD JONO Yao/PREETI /3:29 PM /8:00 PM
[2017-01-11] MEDS: PRAVASTATIN SOD 40 MG TAB PO SCH (22:08)
[2017-01-11] MEDS: ASPIRIN EC 81 MG TABEC PO SCH (22:09)
[2017-01-11] MEDS: predniSONE 5 MG TAB PO SCH (22:10)
[2017-01-11] MEDS: MONTELUKAST SODIUM 10 MG TAB PO SCH (22:10)
[2017-01-11] MEDS: AMITRIPTYLINE HCL 75 MG TAB PO SCH (22:25)
--- NOTE | 2017-01-11 23:26 | RADRPT ---
EXAM DATE/TIME: 01/11/2017 19:41 [facility] COMPARISON: No previous studies available for comparison. INDICATIONS : Frequent falls. MEDICAL HISTORY : Hypertension. SURGICAL HISTORY : CABG Hysterectomy. ENCOUNTER: Initial ACUITY: 1 day PAIN SCORE: 0/10 LOCATION: cranial TECHNIQUE: Multiplanar, multisequence MRI of the brain was performed without contrast. FINDINGS: CEREBRUM: The ventricles are normal for age. No evidence of midline shift, mass lesion, hemorrhage or acute in farction. No extraaxial fluid collections are seen. The pituitary gland and suprasellar cistern are normal in configuration. WHITE MATTER: Mild to moderate signal abnormalities are seen in the white matter. POSTERIOR FOSSA: The cerebellum and brainstem are intact. The 4th ventricle is midline. The cerebellopontine angle is unremarkable. The cerebellar tonsils are normal in position. DIFFUSION IMAGING: No focal areas of restricted diffusion are seen. No evidence of acute infarction. EXTRACRANIAL: The visualized portions of the orbits and paranasal sinuses are unremarkable. CONCLUSION: 1. There are [id number] patchy signal abnormalities in the white matter especially the perivent ricular region. Primary differential diagnosis is chronic ischemic white matter disease. Cannot rule out other etiologies such as multiple sclerosis. No recent infarct, mass or hemorrhage. Sharan Gonzalez MD on January 11, 2017 at 23:19 Board Certified Radiologist. This report was verified electronically.
--- NOTE | 2017-01-11 23:30 | RADRPT ---
EXAM DATE/TIME: 01/11/2017 19:41 [facility] COMPARISON: No previous studies available for comparison. INDICATIONS : Frequent falls. MEDICAL HISTORY : Hypertension. SURGICAL HISTORY : CABG Hysterectomy. ENCOUNTER: Initial ACUITY: 1 day PAIN SCORE: 0/10 LOCATION: cranial Please note a normal MRA of the brain does not entirely exclude the possibility of a small aneurysm, nor the possibility of distal intracranial vessel disease. TECHNIQUE: 3D time of flight MRA was performed. Source images, multiplanar STS MIP, and 3D volume MIP reconstru ctions were reviewed. FINDINGS: There is excellent visualization of the major intracranial arteries out to the second-order branch ve ssels. There is a probable stenosis of the left posterior cerebral artery. Right posterior cerebral a nd anterior and middle cerebral arteries are patent. Basilar artery and distal internal carotid arter ies are patent. No discrete aneurysm. CONCLUSION: 1. Probable stenosis left posterior cerebral artery. MRA brain otherwise unremarkable. Sharan Gonzalez MD on January 11, 2017 at 23:25 Board Certified Radiologist. This report was verified electronically.
[2017-01-12] VITALS (10 sets, daily range): BP systolic 118–167; BP diastolic 60–77; PULSE 62–92; RESP 16–20; TEMP 96.7–99.1; O2SAT 93–98
[2017-01-12] MEDS ORDERED: diphenhydrAMINE HCL 25 MG CAP PO ONE (01:15)
[2017-01-12] MEDS: ACETAMINOPHEN 325 MG TAB PO PRN (02:07)
[2017-01-12] MEDS: PANTOPRAZOLE SOD 40 MG DELAYED RELEASE TAB PO SCH (04:47)
[2017-01-12] MEDS: LEVOTHYROXINE SODIUM 88 MCG TAB PO SCH (04:47)
--- NOTE | 2017-01-12 08:04 | HHI.PR ---
Subjective Remarks in no acute distress. remains afebrile. says that her vertigo is improving. d/w the RN. Objective Vitals Vital Signs Date Time Temp Pulse Resp B/P Pulse Ox O2 Delivery O2 Flow Rate FiO2 01/12/17 04:00 98.4 64 20 118/68 94 01/12/17 00:00 97.7 65 20 167/77 95 01/11/17 21:45 95 Nasal Cannula 2.00 01/11/17 16:58 98.8 69 20 150/20 92 131/59 139/64 01/11/17 12:08 98.6 74 20 133/81 94 01/11/17 09:36 95 21 01/11/17 08:13 97.4 70 20 141/74 93 I/O 01/11/17 01/11/17 01/11/17 01/12/17 01/12/17 01/12/17 07:00 15:00 23:00 07:00 15:00 23:00 Intake Total 118 ml 220 ml Balance 118 ml 220 ml Intake Oral 118 ml 220 ml # Voids 2 3 5 # Bowel Movements 0 0 Result Diagram: 01/11/17 1026 01/09/17 1515 Imaging Last Impressions Head Magnetic Resonance Angiography 01/11/17 0000 Signed Impressions: Service Date/Time: Wednesday, January 11, 2017 19:41 - CONCLUSION: 1. Probable stenosis left posterior cerebral artery. MRA brain otherwise unremarkable. Sharan Gonzalez MD Brain MRI 01/11/17 0000 Signed Impressions: Service Date/Time: Wednesday, January 11, 2017 19:41 - CONCLUSION: 1. There are [id number] patchy signal abnormalities in the white matter especially the periventricular region. Primary differential diagnosis is chronic ischemic white matter disease. Cannot rule out other etiologies such as multiple sclerosis. No recent infarct, mass or hemorrhage. Sharan Gonzalez MD Head CT 01/10/17 0000 Signed Impressions: Service Date/Time: December 03:26 - CONCLUSION: Unremarkable study. Deya Bauer MD Carotid Artery Ultrasound 01/10/17 0000 Signed Impressions: Service Date/Time: December 09:42 - CONCLUSION: 1. Atherosclerotic plaquing at the bifurcations bilaterally. No hemodynamically significant carotid artery stenosis identified. Osvaldo Breen MD Chest X-Ray 01/09/17 9715 Signed Impressions: Service Date/Time: Monday, January 09, 2017 15:33 - CONCLUSION: Compensated cardiomegaly otherwise negative Willis Breen MD FACR Objective Remarks GENERAL: This is a well-nourished, well-developed patient, in no apparent distress. CARDIOVASCULAR: Regular rate and regular rhythm without murmurs, gallops, or rubs. RESPIRATORY: Clear to auscultation. Breath sounds equal bilaterally. No wheezes , rales, or rhonchi. GASTROINTESTINAL: Abdomen soft, non-tender, nondistended. Normal, active bowel sounds MUSCULOSKELETAL: Extremities without clubbing, cyanosis, or edema. NEURO: Alert & Oriented x4 to person, place, time, situation. Moves all ext x4 Procedures none Medications and IVs Current Medications Acetaminophen 650 mg 650 mg ONCE ONCE PO Last administered on 01/09/17 16:15 ; Start 01/09/17 at 15:15; Stop 01/09/17 at 15:20; Status DC Sodium Chloride 1,000 ml @ 1,000 mls/hr Q1H ONCE IV Last administered on 16:16; Start 01/09/17 at 15:15; Stop 01/09/17 at 16:14; Status DC Sodium Chloride 1,000 ml @ 1,000 mls/hr Q1H ONCE IV Last administered on 16:17; Start 01/09/17 at 15:15; Stop 01/09/17 at 16:14; Status DC Sodium Chloride 400 ml @ 1,000 mls/hr Q24M ONCE IV Last administered on 16:41; Start 01/09/17 at 15:15; Stop 01/09/17 at 15:38; Status DC Ceftriaxone Sodium 1000 mg/ Sodium Chloride 100 ml @ 200 mls/hr ONCE ONCE IV Last administered on 01/09/17 18:15; Start 01/09/17 at 18:15; Stop 01/09/17 at 18:44; Status DC Azithromycin/ Sodium Chloride (Zithromax Inj/ NS 250 ml Inj) 250 ml @ 250 mls/ hr ONCE ONCE IV Last administered on 01/09/17 18:39; Start 01/09/17 at 18:15 ; Stop 01/09/17 at 19:14; Status DC Acetaminophen (Tylenol) 650 mg Q4H PRN PO FEVER; Start 01/09/17 at 18:30 Albuterol/ Ipratropium (Duoneb Neb) 1 ampule Q4HR NEB PRN NEB SHORTNESS OF BREATH Last administered on 01/09/17 19:12; Start 01/09/17 at 18:30 Ibuprofen 600 mg 600 mg ONCE ONCE PO Last administered on 01/09/17 19:01; Start 01/09/17 at 19:00; Stop 01/09/17 at 19:01; Status DC Levofloxacin/ Dextrose (Levaquin 750 Mg Premix Inj) 150 ml @ 100 mls/hr Q24H IV Last administered on 01/11/17 09:49; Start 01/10/17 at 09:00 Amitriptyline HCl (Elavil) 150 mg HS PO Last administered on 01/11/17 22:25; Start 01/10/17 at 21:00 Aspirin (Ecotrin Ec) 81 mg HS PO Last administered on 01/11/17 22:09; Start at 21:00 Clopidogrel Bisulfate (Plavix) 75 mg DAILY PO Last administered on 01/11/17 09 :48; Start 01/10/17 at 09:00 Furosemide (Lasix) 40 mg BID@09,18 PO Last administered on 01/11/17 17:26; Start 01/10/17 at 09:00 Gabapentin (Neurontin) 900 mg TID PO Last administered on 01/11/17 17:25; Start 01/10/17 at 09:00 Hydroxyzine Pamoate (Vistaril) 25 mg TID PRN PO ANXIETY Last administered on 22:11; Start 01/10/17 at 02:30 Levothyroxine Sodium (Synthroid) 88 mcg DAILY@06 PO Last administered on 04:47; Start 01/10/17 at 06:00 Meclizine HCl (Antivert) 12.5 mg TID PRN PO VERTIGO; Start 01/10/17 at 02:30 Montelukast Sodium (Singulair) 10 mg HS PO Last administered on 01/11/17 22:10 ; Start 01/10/17 at 21:00 Pantoprazole Sodium (Protonix) 40 mg DAILY@06 PO Last administered on 04:47; Start 01/10/17 at 06:00 Potassium Chloride (KCl) 10 meq BID PO Last administered on 01/11/17 22:03; Start 01/10/17 at 09:00 Pravastatin Sodium (Pravachol) 40 mg HS PO Last administered on 01/11/17 22:08 ; Start 01/10/17 at 21:00 Prednisone (Deltasone) 5 mg HS PO Last administered on 01/11/17 22:10; Start 01/10/17 at 21:00 Metoprolol Succinate (Toprol Xl) 100 mg DAILY PO Last administered on 09:48; Start 01/10/17 at 09:00 Ondansetron HCl (Zofran Odt) 4 mg Q8H PRN PO NAUSEA/VOMITING; Start 01/10/17 at 02:45 Miscellaneous (Pill Splitter) 1 ea UNSCH PRN OTHER SEE LABEL COMMENTS; Start at 02:45 Acetaminophen (Tylenol) 650 mg Q4H PRN PO pain 1-10 Last administered on 02:07; Start 01/10/17 at 02:45 Enoxaparin Sodium (Lovenox Inj) 40 mg Q24H SQ Last administered on 01/11/17 09 :49; Start 01/10/17 at 09:00 Lorazepam (Ativan) 0.5 mg [employer] PRN PO SEE LABEL COMMENTS Last administered on 01/11/17 18:16; Start 01/11/17 at 18:00; Stop 01/12/17 at 17:59 Diphenhydramine HCl (Benadryl) 25 mg ONCE ONCE PO Last administered on 01:34; Start 01/12/17 at 01:15; Stop 01/12/17 at 01:16; Status DC A/P Assessment and Plan A/P dizziness/ frequent falls- likely due to vertigo. CT head with no acute abnormality- carotid doppler with no significant stenosis- MRI brain with no acute stroke or hemorrhage. neurology consult appreciated- continue PT. repeat orthostatic BP- holter as outpatient. Possible sepsiswith fever, mild leukocytosis with left shift. Possible source being early pneumonia. continue with antibiotics - blood cultures negative so far. CAD- s/p CABG/ hypertension/ dyslipidemia; continue aspirin, plavix, BB and statin. 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 Discharge Planning possible dc home tomorrow if remains afebrile and continues to improve. Ignacio Morrow MD Jan 12, 2017 08:04
[2017-01-12] MEDS ORDERED: LEVA500T20 PO (08:06)
--- NOTE | 2017-01-12 08:07 | HHI.DCPOC ---
Discharge Care Plan Diagnosis: (1) PNA (pneumonia) (2) Sepsis Additional Problems fever/vertigo. Goals to Promote Your Health * To prevent worsening of your condition and complications * To maintain your health at the optimal level Directions to Meet Your Goals Take your medications as prescribed Follow your dietary instruction Follow activity as directed Keep your appointments as scheduled Take your immunizations and boosters as scheduled If your symptoms worsen call your PCP, if no PCP go to Urgent Care Center or Emergency Room Smoking is Dangerous to Your Health. Avoid second hand smoke Call the 24-hour hour crisis hotline for domestic abuse at Ignacio Morrow MD Jan 12, 2017 08:07
[2017-01-12] MEDS: METOPROLOL SUCCINATE 50 MG EXTENDED RELEASE TAB PO SCH (09:01)
[2017-01-12] MEDS: diphenhydrAMINE HCL 25 MG CAP PO PRN ×3 (09:01→21:41)
[2017-01-12] MEDS: FUROSEMIDE 40 MG TAB PO SCH ×2 (09:02→18:05)
[2017-01-12] MEDS: GABAPENTIN 300 MG CAP PO SCH ×3 (09:02→18:06)
[2017-01-12] MEDS: POTASSIUM CHLORIDE 10 MEQ CONTROLLED RELEASE TAB PO SCH ×2 (09:02→21:04)
[2017-01-12] MEDS: CLOPIDOGREL 75 MG TAB PO SCH (09:02)
[2017-01-12] MEDS: ENOXAPARIN SODIUM 40 MG/0.4 ML SYRINGE SQ SCH (09:03)
[2017-01-12] MEDS: LEVOFLOXACIN 750 MG PREMIX INJ 150 ML IV SCH (09:06)
[2017-01-12] MEDS: MONTELUKAST SODIUM 10 MG TAB PO SCH (21:00)
[2017-01-12] MEDS: AMITRIPTYLINE HCL 75 MG TAB PO SCH (21:00)
[2017-01-12] MEDS: PRAVASTATIN SOD 40 MG TAB PO SCH (21:01)
[2017-01-12] MEDS: ASPIRIN EC 81 MG TABEC PO SCH (21:01)
[2017-01-12] MEDS: predniSONE 5 MG TAB PO SCH (21:02)
[2017-01-13] MEDS: ACETAMINOPHEN 325 MG TAB PO PRN ×3 (01:33→20:52)
[2017-01-13] MEDS: hydrOXYzine PAMOATE 25 MG CAP PO PRN (01:51)
[2017-01-13 04:00] VITALS: BP 108/59; PULSE 61; RESP 23; TEMP 98; O2SAT 94
[2017-01-13] MEDS: PANTOPRAZOLE SOD 40 MG DELAYED RELEASE TAB PO SCH (05:33)
[2017-01-13] MEDS: LEVOTHYROXINE SODIUM 88 MCG TAB PO SCH (05:33)
[2017-01-13 08:00] VITALS: BP 154/73; PULSE 68; RESP 17; TEMP 96.7; O2SAT 96
--- NOTE | 2017-01-13 08:08 | HHI.PR ---
Subjective Remarks resting comfortably with no distress. afebrile. dizziness is better. no new complaints. Objective Vitals Vital Signs Date Time Temp Pulse Resp B/P Pulse Ox O2 Delivery O2 Flow Rate FiO2 01/13/17 04:00 98.0 61 23 108/59 94 01/12/17 23:12 67 129/61 123/64 134/70 01/12/17 21:14 95 21 01/12/17 20:00 99.1 72 18 150/70 95 01/12/17 16:32 98.9 62 16 135/71 95 01/12/17 12:58 97.1 64 20 135/77 95 01/12/17 09:04 96.7 92 18 128/60 98 01/12/17 08:28 93 21 I/O 01/12/17 01/12/17 01/12/17 01/13/17 01/13/17 01/13/17 07:00 15:00 23:00 07:00 15:00 23:00 Intake Total 220 ml 950 ml 1500 ml Balance 220 ml 950 ml 1500 ml Intake Oral 220 ml 950 ml 1500 ml # Voids 5 1 3 # Bowel Movements 0 1 0 Result Diagram: 01/11/17 1026 01/09/17 1515 Imaging Last Impressions Head Magnetic Resonance Angiography 01/11/17 0000 Signed Impressions: Service Date/Time: Wednesday, January 11, 2017 19:41 - CONCLUSION: 1. Probable stenosis left posterior cerebral artery. MRA brain otherwise unremarkable. Sharan Gonzalez MD Brain MRI 01/11/17 0000 Signed Impressions: Service Date/Time: Wednesday, January 11, 2017 19:41 - CONCLUSION: 1. There are [id number] patchy signal abnormalities in the white matter especially the periventricular region. Primary differential diagnosis is chronic ischemic white matter disease. Cannot rule out other etiologies such as multiple sclerosis. No recent infarct, mass or hemorrhage. Sharan Gonzalez MD Head CT 01/10/17 0000 Signed Impressions: Service Date/Time: December 03:26 - CONCLUSION: Unremarkable study. Deya Bauer MD Carotid Artery Ultrasound 01/10/17 0000 Signed Impressions: Service Date/Time: December 09:42 - CONCLUSION: 1. Atherosclerotic plaquing at the bifurcations bilaterally. No hemodynamically significant carotid artery stenosis identified. Osvaldo Breen MD Chest X-Ray 01/09/17 2145 Signed Impressions: Service Date/Time: Monday, January 09, 2017 15:33 - CONCLUSION: Compensated cardiomegaly otherwise negative Willis Breen MD FACR Objective Remarks GENERAL: This is a well-nourished, well-developed patient, in no apparent distress. CARDIOVASCULAR: Regular rate and regular rhythm without murmurs, gallops, or rubs. RESPIRATORY: Clear to auscultation. Breath sounds equal bilaterally. No wheezes , rales, or rhonchi. GASTROINTESTINAL: Abdomen soft, non-tender, nondistended. Normal, active bowel sounds MUSCULOSKELETAL: Extremities without clubbing, cyanosis, or edema. NEURO: Alert & Oriented x4 to person, place, time, situation. Moves all ext x4 Procedures none Medications and IVs Current Medications Acetaminophen 650 mg 650 mg ONCE ONCE PO Last administered on 01/09/17 16:15 ; Start 01/09/17 at 15:15; Stop 01/09/17 at 15:20; Status DC Sodium Chloride 1,000 ml @ 1,000 mls/hr Q1H ONCE IV Last administered on 16:16; Start 01/09/17 at 15:15; Stop 01/09/17 at 16:14; Status DC Sodium Chloride 1,000 ml @ 1,000 mls/hr Q1H ONCE IV Last administered on 16:17; Start 01/09/17 at 15:15; Stop 01/09/17 at 16:14; Status DC Sodium Chloride 400 ml @ 1,000 mls/hr Q24M ONCE IV Last administered on 16:41; Start 01/09/17 at 15:15; Stop 01/09/17 at 15:38; Status DC Ceftriaxone Sodium 1000 mg/ Sodium Chloride 100 ml @ 200 mls/hr ONCE ONCE IV Last administered on 01/09/17 18:15; Start 01/09/17 at 18:15; Stop 01/09/17 at 18:44; Status DC Azithromycin/ Sodium Chloride (Zithromax Inj/ NS 250 ml Inj) 250 ml @ 250 mls/ hr ONCE ONCE IV Last administered on 01/09/17 18:39; Start 01/09/17 at 18:15 ; Stop 01/09/17 at 19:14; Status DC Acetaminophen (Tylenol) 650 mg Q4H PRN PO FEVER Last administered on 01/13/17 01:33; Start 01/09/17 at 18:30 Albuterol/ Ipratropium (Duoneb Neb) 1 ampule Q4HR NEB PRN NEB SHORTNESS OF BREATH Last administered on 01/09/17 19:12; Start 01/09/17 at 18:30 Ibuprofen 600 mg 600 mg ONCE ONCE PO Last administered on 01/09/17 19:01; Start 01/09/17 at 19:00; Stop 01/09/17 at 19:01; Status DC Levofloxacin/ Dextrose (Levaquin 750 Mg Premix Inj) 150 ml @ 100 mls/hr Q24H IV Last administered on 01/12/17 09:06; Start 01/10/17 at 09:00 Amitriptyline HCl (Elavil) 150 mg HS PO Last administered on 01/12/17 21:00; Start 01/10/17 at 21:00 Aspirin (Ecotrin Ec) 81 mg HS PO Last administered on 01/12/17 21:01; Start at 21:00 Clopidogrel Bisulfate (Plavix) 75 mg DAILY PO Last administered on 01/12/17 09 :02; Start 01/10/17 at 09:00 Furosemide (Lasix) 40 mg BID@09,18 PO Last administered on 01/12/17 18:05; Start 01/10/17 at 09:00 Gabapentin (Neurontin) 900 mg TID PO Last administered on 01/12/17 18:06; Start 01/10/17 at 09:00 Hydroxyzine Pamoate (Vistaril) 25 mg TID PRN PO ANXIETY Last administered on 01:51; Start 01/10/17 at 02:30 Levothyroxine Sodium (Synthroid) 88 mcg DAILY@06 PO Last administered on 05:33; Start 01/10/17 at 06:00 Meclizine HCl (Antivert) 12.5 mg TID PRN PO VERTIGO; Start 01/10/17 at 02:30 Montelukast Sodium (Singulair) 10 mg HS PO Last administered on 01/12/17 21:00 ; Start 01/10/17 at 21:00 Pantoprazole Sodium (Protonix) 40 mg DAILY@06 PO Last administered on 05:33; Start 01/10/17 at 06:00 Potassium Chloride (KCl) 10 meq BID PO Last administered on 01/12/17 21:04; Start 01/10/17 at 09:00 Pravastatin Sodium (Pravachol) 40 mg HS PO Last administered on 01/12/17 21:01 ; Start 01/10/17 at 21:00 Prednisone (Deltasone) 5 mg HS PO Last administered on 01/12/17 21:02; Start 01/10/17 at 21:00 Metoprolol Succinate (Toprol Xl) 100 mg DAILY PO Last administered on 09:01; Start 01/10/17 at 09:00 Ondansetron HCl (Zofran Odt) 4 mg Q8H PRN PO NAUSEA/VOMITING; Start 01/10/17 at 02:45 Miscellaneous (Pill Splitter) 1 ea UNSCH PRN OTHER SEE LABEL COMMENTS; Start at 02:45 Acetaminophen (Tylenol) 650 mg Q4H PRN PO pain 1-10 Last administered on 02:07; Start 01/10/17 at 02:45 Enoxaparin Sodium (Lovenox Inj) 40 mg Q24H SQ Last administered on 01/12/17 09 :03; Start 01/10/17 at 09:00 Lorazepam (Ativan) 0.5 mg DOOR FRAMER PRN PO SEE LABEL COMMENTS Last administered on 01/11/17 18:16; Start 01/11/17 at 18:00; Stop 01/12/17 at 17:59; Status DC Diphenhydramine HCl (Benadryl) 25 mg ONCE ONCE PO Last administered on 01:34; Start 01/12/17 at 01:15; Stop 01/12/17 at 01:16; Status DC Diphenhydramine HCl (Benadryl) 25 mg Q6H PRN PO ITCHING Last administered on 21:41; Start 01/12/17 at 08:15 Cyanocobalamin (Vitamin B12) 1,000 mcg DAILY PO ; Start 01/13/17 at 09:00 A/P Assessment and Plan A/P dizziness/ frequent falls- likely due to vertigo. CT head with no acute abnormality- carotid doppler with no significant stenosis- MRI brain with no acute stroke or hemorrhage. no orthostatic hypotension. neurology consult appreciated- continue PT. - holter as outpatient. Possible sepsiswith fever, mild leukocytosis with left shift. Possible source being early pneumonia. continue with antibiotics - blood cultures negative so far.will follow the repeated blood culture from 01/12. CAD- s/p CABG/ hypertension/ dyslipidemia; continue aspirin, plavix, BB and statin. 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 Discharge Planning dc home tomorrow if afebrile with negative blood cultures. Ignacio Morrow MD Jan 13, 2017 08:07
[2017-01-13 08:30] VITALS: O2SAT 96
[2017-01-13] MEDS: diphenhydrAMINE HCL 25 MG CAP PO PRN ×2 (09:28→20:54)
[2017-01-13] MEDS: CLOPIDOGREL 75 MG TAB PO SCH (09:28)
[2017-01-13] MEDS: METOPROLOL SUCCINATE 50 MG EXTENDED RELEASE TAB PO SCH (09:28)
[2017-01-13] MEDS: POTASSIUM CHLORIDE 10 MEQ CONTROLLED RELEASE TAB PO SCH ×2 (09:28→20:45)
[2017-01-13] MEDS: CYANOCOBALAMIN 1,000 MCG TAB PO SCH (09:29)
[2017-01-13] MEDS: ENOXAPARIN SODIUM 40 MG/0.4 ML SYRINGE SQ SCH (09:29)
[2017-01-13] MEDS: GABAPENTIN 300 MG CAP PO SCH ×3 (09:29→17:21)
[2017-01-13] MEDS: LEVOFLOXACIN 750 MG PREMIX INJ 150 ML IV SCH (09:29)
[2017-01-13] MEDS: FUROSEMIDE 40 MG TAB PO SCH ×2 (09:29→17:21)
[2017-01-13 12:00] VITALS: BP 130/74; PULSE 69; RESP 17; TEMP 96.9; O2SAT 94
[2017-01-13 16:00] VITALS: BP 147/70; PULSE 80; RESP 17; TEMP 96.7; O2SAT 96
[2017-01-13 20:00] VITALS: BP 133/70; PULSE 66; RESP 20; TEMP 97.5; O2SAT 92
[2017-01-13] MEDS: PRAVASTATIN SOD 40 MG TAB PO SCH (20:45)
[2017-01-13] MEDS: predniSONE 5 MG TAB PO SCH (20:45)
[2017-01-13] MEDS: MONTELUKAST SODIUM 10 MG TAB PO SCH (20:45)
[2017-01-13] MEDS: AMITRIPTYLINE HCL 75 MG TAB PO SCH (20:45)
[2017-01-13] MEDS: ASPIRIN EC 81 MG TABEC PO SCH (20:45)
[2017-01-14] VITALS: BP 165/75; PULSE 61; RESP 20; TEMP 97.5; O2SAT 97
[2017-01-14 04:00] VITALS: BP 129/74; PULSE 65; RESP 18; TEMP 97.1; O2SAT 94
[2017-01-14] MEDS: PANTOPRAZOLE SOD 40 MG DELAYED RELEASE TAB PO SCH (05:45)
[2017-01-14] MEDS: LEVOTHYROXINE SODIUM 88 MCG TAB PO SCH (05:45)
[2017-01-14 05:50] VITALS: PULSE 107
[2017-01-14 08:44] VITALS: BP 164/75; PULSE 64; RESP 20; TEMP 97.1; O2SAT 94
[2017-01-14] MEDS: POTASSIUM CHLORIDE 10 MEQ CONTROLLED RELEASE TAB PO SCH (09:22)
[2017-01-14] MEDS: GABAPENTIN 300 MG CAP PO SCH ×2 (09:22→13:07)
[2017-01-14] MEDS: METOPROLOL SUCCINATE 50 MG EXTENDED RELEASE TAB PO SCH (09:22)
[2017-01-14] MEDS: FUROSEMIDE 40 MG TAB PO SCH (09:22)
[2017-01-14] MEDS: CLOPIDOGREL 75 MG TAB PO SCH (09:23)
[2017-01-14] MEDS: ENOXAPARIN SODIUM 40 MG/0.4 ML SYRINGE SQ SCH (09:23)
[2017-01-14] MEDS: CYANOCOBALAMIN 1,000 MCG TAB PO SCH (09:23)
[2017-01-14] MEDS: LEVOFLOXACIN 750 MG PREMIX INJ 150 ML IV SCH (09:23)
[2017-01-14 10:00] VITALS: O2SAT 93
--- NOTE | 2017-01-14 11:36 | HHI.PR ---
Subjective Remarks resting comfortably with no distress. dizziness has resolved. no fever or any other new complaints. Objective Vitals Vital Signs Date Time Temp Pulse Resp B/P Pulse Ox O2 Delivery O2 Flow Rate FiO2 01/14/17 10:00 93 21 01/14/17 08:44 97.1 64 20 164/75 94 01/14/17 04:00 97.1 65 18 129/74 94 01/14/17 00:00 97.5 61 20 165/75 97 01/13/17 20:00 97.5 66 20 133/70 92 01/13/17 16:00 96.7 80 17 147/70 96 01/13/17 12:00 96.9 69 17 130/74 94 I/O 01/13/17 01/13/17 01/13/17 01/14/17 01/14/17 01/14/17 07:00 15:00 23:00 07:00 15:00 23:00 Intake Total 1500 ml 480 ml 720 ml Balance 1500 ml 480 ml 720 ml Intake Oral 1500 ml 480 ml 720 ml # Voids 3 4 2 # Bowel Movements 0 Result Diagram: 01/11/17 1026 Imaging Last Impressions Head Magnetic Resonance Angiography 01/11/17 0000 Signed Impressions: Service Date/Time: Wednesday, January 11, 2017 19:41 - CONCLUSION: 1. Probable stenosis left posterior cerebral artery. MRA brain otherwise unremarkable. Sharan Gonzalez MD Brain MRI 01/11/17 0000 Signed Impressions: Service Date/Time: Wednesday, January 11, 2017 19:41 - CONCLUSION: 1. There are [id number] patchy signal abnormalities in the white matter especially the periventricular region. Primary differential diagnosis is chronic ischemic white matter disease. Cannot rule out other etiologies such as multiple sclerosis. No recent infarct, mass or hemorrhage. Sharan Gonzalez MD Head CT 01/10/17 0000 Signed Impressions: Service Date/Time: December 03:26 - CONCLUSION: Unremarkable study. Deya Bauer MD Carotid Artery Ultrasound 01/10/17 0000 Signed Impressions: Service Date/Time: December 09:42 - CONCLUSION: 1. Atherosclerotic plaquing at the bifurcations bilaterally. No hemodynamically significant carotid artery stenosis identified. Osvaldo Breen MD Chest X-Ray 01/09/17 1515 Signed Impressions: Service Date/Time: Monday, January 09, 2017 15:33 - CONCLUSION: Compensated cardiomegaly otherwise negative Willis Breen MD FACR Objective Remarks GENERAL: This is a well-nourished, well-developed patient, in no apparent distress. CARDIOVASCULAR: Regular rate and regular rhythm without murmurs, gallops, or rubs. RESPIRATORY: Clear to auscultation. Breath sounds equal bilaterally. No wheezes , rales, or rhonchi. GASTROINTESTINAL: Abdomen soft, non-tender, nondistended. Normal, active bowel sounds MUSCULOSKELETAL: Extremities without clubbing, cyanosis, or edema. NEURO: Alert & Oriented x4 to person, place, time, situation. Moves all ext x4 Procedures none Medications and IVs Current Medications Acetaminophen 650 mg 650 mg ONCE ONCE PO Last administered on 01/09/17 16:15 ; Start 01/09/17 at 15:15; Stop 01/09/17 at 15:20; Status DC Sodium Chloride 1,000 ml @ 1,000 mls/hr Q1H ONCE IV Last administered on 16:16; Start 01/09/17 at 15:15; Stop 01/09/17 at 16:14; Status DC Sodium Chloride 1,000 ml @ 1,000 mls/hr Q1H ONCE IV Last administered on 16:17; Start 01/09/17 at 15:15; Stop 01/09/17 at 16:14; Status DC Sodium Chloride 400 ml @ 1,000 mls/hr Q24M ONCE IV Last administered on 16:41; Start 01/09/17 at 15:15; Stop 01/09/17 at 15:38; Status DC Ceftriaxone Sodium 1000 mg/ Sodium Chloride 100 ml @ 200 mls/hr ONCE ONCE IV Last administered on 01/09/17 18:15; Start 01/09/17 at 18:15; Stop 01/09/17 at 18:44; Status DC Azithromycin/ Sodium Chloride (Zithromax Inj/ NS 250 ml Inj) 250 ml @ 250 mls/ hr ONCE ONCE IV Last administered on 01/09/17 18:39; Start 01/09/17 at 18:15 ; Stop 01/09/17 at 19:14; Status DC Acetaminophen (Tylenol) 650 mg Q4H PRN PO FEVER Last administered on 01/13/17 20:52; Start 01/09/17 at 18:30 Albuterol/ Ipratropium (Duoneb Neb) 1 ampule Q4HR NEB PRN NEB SHORTNESS OF BREATH Last administered on 01/09/17 19:12; Start 01/09/17 at 18:30; Stop 01/13 at 18:30; Status DC Ibuprofen 600 mg 600 mg ONCE ONCE PO Last administered on 01/09/17 19:01; Start 01/09/17 at 19:00; Stop 01/09/17 at 19:01; Status DC Levofloxacin/ Dextrose (Levaquin 750 Mg Premix Inj) 150 ml @ 100 mls/hr Q24H IV Last administered on 01/14/17 09:23; Start 01/10/17 at 09:00 Amitriptyline HCl (Elavil) 150 mg HS PO Last administered on 01/13/17 20:45; Start 01/10/17 at 21:00 Aspirin (Ecotrin Ec) 81 mg HS PO Last administered on 01/13/17 20:45; Start at 21:00 Clopidogrel Bisulfate (Plavix) 75 mg DAILY PO Last administered on 01/14/17 09 :23; Start 01/10/17 at 09:00 Furosemide (Lasix) 40 mg BID@09,18 PO Last administered on 01/14/17 09:22; Start 01/10/17 at 09:00 Gabapentin (Neurontin) 900 mg TID PO Last administered on 01/14/17 09:22; Start 01/10/17 at 09:00 Hydroxyzine Pamoate (Vistaril) 25 mg TID PRN PO ANXIETY Last administered on 01:51; Start 01/10/17 at 02:30 Levothyroxine Sodium (Synthroid) 88 mcg DAILY@06 PO Last administered on 05:45; Start 01/10/17 at 06:00 Meclizine HCl (Antivert) 12.5 mg TID PRN PO VERTIGO; Start 01/10/17 at 02:30 Montelukast Sodium (Singulair) 10 mg HS PO Last administered on 01/13/17 20:45 ; Start 01/10/17 at 21:00 Pantoprazole Sodium (Protonix) 40 mg DAILY@06 PO Last administered on 05:45; Start 01/10/17 at 06:00 Potassium Chloride (KCl) 10 meq BID PO Last administered on 01/14/17 09:22; Start 01/10/17 at 09:00 Pravastatin Sodium (Pravachol) 40 mg HS PO Last administered on 01/13/17 20:45 ; Start 01/10/17 at 21:00 Prednisone (Deltasone) 5 mg HS PO Last administered on 01/13/17 20:45; Start 01/10/17 at 21:00 Metoprolol Succinate (Toprol Xl) 100 mg DAILY PO Last administered on 09:22; Start 01/10/17 at 09:00 Ondansetron HCl (Zofran Odt) 4 mg Q8H PRN PO NAUSEA/VOMITING; Start 01/10/17 at 02:45 Miscellaneous (Pill Splitter) 1 ea UNSCH PRN OTHER SEE LABEL COMMENTS; Start at 02:45 Acetaminophen (Tylenol) 650 mg Q4H PRN PO pain 1-10 Last administered on 13:10; Start 01/10/17 at 02:45 Enoxaparin Sodium (Lovenox Inj) 40 mg Q24H SQ Last administered on 01/14/17 09 :23; Start 01/10/17 at 09:00 Lorazepam (Ativan) 0.5 mg LEGAL FINANCIAL SPECIALIST PRN PO SEE LABEL COMMENTS Last administered on 01/11/17 18:16; Start 01/11/17 at 18:00; Stop 01/12/17 at 17:59; Status DC Diphenhydramine HCl (Benadryl) 25 mg ONCE ONCE PO Last administered on 01:34; Start 01/12/17 at 01:15; Stop 01/12/17 at 01:16; Status DC Diphenhydramine HCl (Benadryl) 25 mg Q6H PRN PO ITCHING Last administered on 20:54; Start 01/12/17 at 08:15 Cyanocobalamin (Vitamin B12) 1,000 mcg DAILY PO Last administered on 01/14/17t 09:23; Start 01/13/17 at 09:00 A/P Assessment and Plan A/P dizziness/ frequent falls- likely due to vertigo- improved. CT head with no acute abnormality- carotid doppler with no significant stenosis- MRI brain with no acute stroke or hemorrhage. no orthostatic hypotension. neurology consult appreciated- continue PT. - holter as outpatient. Possible sepsiswith fever, mild leukocytosis with left shift. Possible source being early pneumonia. continue with antibiotics - one of the bottle of initial blood cultures positive for gram negative darryl- the repeated blood culture from 01/12 with staph. coag. negative-likely contamination. CAD- s/p CABG/ hypertension/ dyslipidemia; continue aspirin, plavix, BB and statin. 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 Discharge Planning dc home later today when the final ID on blood cultures is resulted. see med list. f/u; pcp. d/w the patient. d/w the microbiology. time spent 33 min. Ignacio Morrow MD Jan 14, 2017 11:36
[2017-01-14] MEDS ORDERED: VITA10002 PO (11:48)
--- NOTE | 2017-01-14 11:49 | HHI.DS ---
Discharge Summary Admission Date Jan 09, 2017 at 18:34 Discharge Date: Jan 14, 2017 Admitting Diagnosis Sepsis, PNA (1) PNA (pneumonia) ICD Code: J18.9 Diagnosis: Principal (2) Sepsis ICD Code: A41.9 Diagnosis: Principal Procedures none Brief History - From Admission fallen down 6x in 2 months here from [place] felt dzzy, room spinning force pulling me fell forwards falls > 3 months or could be even last year ct brain in [place]- wnl no pain or ringing in ears no sycnope no palpitations no focal weakness no orthostatic dizziness in general no fever coughing when i drink something and go to wrong pipe no antibiotics recently urgent care gave antivert and prednisone 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 radiation treatment because of change in tumor no odynophasi but cough after drinking had huge knot behind her ear - evaluated at urgent now has right upper ear area hard knot sob with climbing stairs or espinoza no nasuea/ no vomting/ no sweating/ no chest pains nno black no blood no abdominal pain no calf pain no calf asymmetry CBC/BMP: 01/11/17 1026 Imaging Last Impressions Head Magnetic Resonance Angiography 01/11/17 0000 Signed Impressions: Service Date/Time: Wednesday, January 11, 2017 19:41 - CONCLUSION: 1. Probable stenosis left posterior cerebral artery. MRA brain otherwise unremarkable. Sharan Gonzalez MD Brain MRI 01/11/17 0000 Signed Impressions: Service Date/Time: Wednesday, January 11, 2017 19:41 - CONCLUSION: 1. There are [id number] patchy signal abnormalities in the white matter especially the periventricular region. Primary differential diagnosis is chronic ischemic white matter disease. Cannot rule out other etiologies such as multiple sclerosis. No recent infarct, mass or hemorrhage. Sharan Gonzalez MD Head CT 01/10/17 0000 Signed Impressions: Service Date/Time: December 03:26 - CONCLUSION: Unremarkable study. Deya Bauer MD Carotid Artery Ultrasound 01/10/17 0000 Signed Impressions: Service Date/Time: December 09:42 - CONCLUSION: 1. Atherosclerotic plaquing at the bifurcations bilaterally. No hemodynamically significant carotid artery stenosis identified. Osvaldo Breen MD Chest X-Ray 01/09/17 1515 Signed Impressions: Service Date/Time: Monday, January 09, 2017 15:33 - CONCLUSION: Compensated cardiomegaly otherwise negative Willis Breen MD FACR PE at Discharge GENERAL: This is a well-nourished, well-developed patient, in no apparent distress. CARDIOVASCULAR: Regular rate and regular rhythm without murmurs, gallops, or rubs. RESPIRATORY: Clear to auscultation. Breath sounds equal bilaterally. No wheezes , rales, or rhonchi. GASTROINTESTINAL: Abdomen soft, non-tender, nondistended. Normal, active bowel sounds MUSCULOSKELETAL: Extremities without clubbing, cyanosis, or edema. NEURO: Alert & Oriented x4 to person, place, time, situation. Moves all ext x4 Hospital Course dizziness/ frequent falls- likely due to vertigo- improved. CT head with no acute abnormality- carotid doppler with no significant stenosis- MRI brain with no acute stroke or hemorrhage. no orthostatic hypotension. neurology consult appreciated- continue PT. - holter as outpatient. Possible sepsiswith fever, mild leukocytosis with left shift. Possible source being early pneumonia. continue with antibiotics - one of the bottle of initial blood cultures positive for fusibacterium species- the repeated blood culture from 01/12 with staph. coag. negative-likely contamination. CAD- s/p CABG/ hypertension/ dyslipidemia; continue aspirin, plavix, BB and statin. 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 Pt Condition on Discharge: Good Discharge Disposition: Discharge Home Discharge Time: > 30 minutes Discharge Instructions DIET: Follow Instructions for: Heart Healthy Diet Activities you can perform: Regular-No Restrictions Follow up Referrals: PCP Follow-up New Medications: Amoxicillin-Clavulanate (Augmentin) 500-125 mg Tab 500 MG PO Q8H Infection Days 10 Ref 0 TAB Cyanocobalamin (Vitamin B-12) 1,000 Mcg Tab 1000 MCG PO DAILY vitamin supplement Days 30 Ref 0 TAB Continued Medications: Amitriptyline (Amitriptyline) 150 Mg Tab 150 MG PO HS Control Depression #30 Ref [address] (Aspirin Adult Low Strength) 81 Mg Tabdr 81 MG PO HS TAB Buspirone (Buspirone) 10 Mg Tab 10 MG PO TID PRN ANXIETY Ref 0 TAB Clopidogrel (Plavix) 75 Mg Tab 75 MG PO DAILY Blood Clot Prevention #30 Ref 0 TAB Furosemide (Lasix) 40 Mg Tab 40 MG PO BID #60 Ref 0 TAB Gabapentin (Gabapentin) 300 Mg Cap 900 MG PO TID #90 Ref 0 CAP Hydroxyzine Pamoate (Vistaril) 25 Mg Cap 25 MG PO TID PRN ANXIETY Ref 0 CAP Levothyroxine (Levothyroxine) 88 Mcg Tab 88 MCG PO DAILY Thyroid #30 Ref 0 TAB Meclizine (Meclizine) 12.5 Mg Tab 12.5 MG PO TID PRN VERTIGO Ref 0 TAB Methocarbamol (Methocarbamol) 750 Mg Tab 1500 MG PO BID Muscle Spasm #180 Ref 0 TAB Metoprolol Succinate ER 24 HR (Metoprolol Succinate ER 24 HR) 100 Mg Tab 100 MG PO DAILY #30 Ref 0 TAB Montelukast (Montelukast) 10 Mg Tab 10 MG PO HS #30 Ref 0 TAB [place]-3 Fatty Acids (Fish Oil 1000 mg) 1 Cap Cap 1000 MG PO BID Ondansetron (Zofran) 4 Mg Tab 4 MG PO Q8HR PRN NAUSEA OR VOMITING Ref 0 TAB Pantoprazole (Pantoprazole) 40 Mg Tab 40 MG PO DAILY Reflux #30 Ref 0 TAB Potassium Chloride ER (Potassium Chloride ER) 10 Meq Tab 10 MEQ PO BID Electrolyte Replacement #60 Ref 0 TAB Pravastatin (Pravastatin) 40 Mg Tab 40 MG PO HS Cholesterol Management #30 Ref 0 TAB Prednisone (Prednisone) 5 Mg Tab 5 MG PO HS Ref 0 TAB Ignacio Morrow MD Jan 14, 2017 11:48
[2017-01-14 12:41] VITALS: BP 127/70; PULSE 67; RESP 20; TEMP 97.5; O2SAT 94
[2017-01-14] MEDS: ACETAMINOPHEN 325 MG TAB PO PRN (13:11)
[2017-01-14] MEDS: diphenhydrAMINE HCL 25 MG CAP PO PRN (14:47)
[2017-01-14] MEDS ORDERED: AUGM500T7 PO (15:33)
[2017-01-14] MEDS ORDERED: WALKER WHEELS/F1 MIS (16:36)
== END 2017-01-14 16:50 | disposition home or self-care (01) | DRG 871 ==
LOC: NEPE 14:54 → NEDA 18:34 → N05B 22:05
PROVIDERS: ADMIT Internal Medicine; ATTEND Internal Medicine
DX: A41.9 Sepsis, unspecified organism (principal); J18.9 Pneumonia, unspecified organism; J44.0 Chronic obstructive pulmonary disease with (acute) lower respiratory infection; I25.10 Atherosclerotic heart disease of native coronary artery without angina pectoris; I10 Essential (primary) hypertension; E86.0 Dehydration; E78.5 Hyperlipidemia, unspecified; E03.9 Hypothyroidism, unspecified; W19.XXXA Unspecified fall, initial encounter; R29.6 Repeated falls; Y92.9 Unspecified place or not applicable; Z86.39 Personal history of other endocrine, nutritional and metabolic disease; Z77.22 Contact with and (suspected) exposure to environmental tobacco smoke (acute) (chronic); Z82.0 Family history of epilepsy and other diseases of the nervous system; Z95.1 Presence of aortocoronary bypass graft; Z96.653 Presence of artificial knee joint, bilateral; Z98.84 Bariatric surgery status
CPT/HCPCS: 70450; 70544; 70551; 71010; 80053; 81001; 82550; 82607; 83605; 83690; 83735; 84100; 84484; 85025; 85610; 85730; 86403; 87040; 87077; 87149; 87186; 87205; 87804; 93306; 93880; 94664; 96360; 96361; J0456; J0696; J1650; J1956; J7030; J7050; J7512; Q0177